=== PATIENT | male | born 1980 | race African-American/Black ===

== ENCOUNTER 2017-09-24 14:17 | Emergency (ER) | payer SELFPAY ==
[~2017-09-24] VITALS: Ht 180.3 cm; Wt 88.5 kg
[2017-09-24] MEDS ORDERED: Lidocaine 1% MPF 10mg/ml 5ml INJ ONE (15:00)
[2017-09-24] MEDS ORDERED: Azithromycin 250mg tab ORAL ONE (15:00)
--- NOTE | 2017-09-24 15:22 | Emergency Room Report ---
History of Present Illness General Chief Complaint: Male Urogenital Problems Source: Patient Present Illness HPI 37-year-old male presents to the emergency department complaining of progressive penile itching, dysuria x3 days. Patient reports that his significant other is receiving treatment here in the ER and has been having episodes of discharge recently unresponsive to treatment. He denies testicular pain or swelling he denies penile discharge, swollen tender lymph nodes, rashes/ lesions or joint pain. Denies abdominal pain. He states that he has noted some increased urinary frequency. Denies hematuria. Denies low back pain. Denies CP, Palpitations, LOC, AMS, dizziness, Changes in Vision, Sensation, paresthesias, or a sudden severe headache. Allergies: Coded Allergies: No Known Allergies (Unverified , 09/24/17) Patient History Past Medical History: see triage record Past Surgical History: none Pertinent Family History: none Immunizations: UTD Reviewed Nursing Documentation: PMH: Agreed, PSxH: Agreed Nursing Documentation-PMH Past Medical History: No Stated History Review of Systems All Other Systems: negative except mentioned in HPI Physical Exam Vital Signs Date Time Temp Pulse Resp B/P (MAP) Pulse Ox O2 Delivery O2 Flow Rate FiO2 09/24/17 14:25 98.3 63 18 131/81 96 Room Air 98.2 Sp02 EP Interpretation: reviewed, normal General Appearance: no apparent distress, alert, GCS 15, non-toxic Head: normocephalic, atraumatic ENT: hearing grossly normal, normal voice Neck: full range of motion Respiratory: lungs clear, normal breath sounds, speaking full sentences Cardiovascular #1: regular rate, rhythm Gastrointestinal: non tender, soft Rectal: deferred Genitourinary: normal inspection, no CVA tenderness, penis normal, scrotum normal, other - normal cremasteric reflex, negative phren's sign, no obvious penile d/c, no lesions, LAD, blisters or vesicles noted. Musculoskeletal: back normal, gait/station normal, normal range of motion, non- tender Neurologic: alert, oriented x3, responsive, motor strength/tone normal, sensory intact, speech normal, grossly normal Psychiatric: judgement/insight normal Skin: normal color, no rash, warm/dry, well hydrated, other - mild erythema to the dorsal glans- scant/faint, no blisters, vesicles or obvious d/c. Lymphatic: no adenopathy Medical Decision Making PA Attestation Dr. smith is my supervising Physician whom patient management has been discussed with. Diagnostic Impression: Primary Impression: Urethritis ER Course 37-year-old male presents to the emergency department complaining of progressive penile itching, dysuria x3 days. Patient reports that his significant other is receiving treatment here in the ER and has been having episodes of discharge recently unresponsive to treatment. He denies testicular pain or swelling he denies penile discharge, swollen tender lymph nodes, rashes/ lesions or joint pain. Denies abdominal pain. He states that he has noted some increased urinary frequency. Denies hematuria. Denies low back pain. Denies CP, Palpitations, LOC, AMS, dizziness, Changes in Vision, Sensation, paresthesias, or a sudden severe headache. Ddx considered but are not limited to UTi , Urethritis, LGV, STI, Stone, Cystitis, prostatitis Threading Machine Tender for PE was: Jigna Vital signs: are WNL, pt. is afebrile H&PE are most consistent with Urethritis, normal cremasteric reflex, negative phren's sign, no obvious penile d/c, no lesions, LAD, blisters or vesicles noted. ORDERS: - UA :unremarkable ED INTERVENTIONS: -250mg Rocephin IM -Azithromycin 1 gram PO DISCHARGE: At this time pt. is stable for d/c to home. Will provide printed patient care instructions, and any necessary prescriptions. Care plan and follow up instructions have been discussed with the patient prior to discharge. Labs Test 09/24/17 14:27 Urine Color Pale yellow Urine Appearance Clear Urine pH 6 (4.5-8.0) Urine Specific [place] 1.010 (1.005-1.035) Urine Protein Negative (NEGATIVE) Urine Glucose (UA) Negative (NEGATIVE) Urine Ketones Negative (NEGATIVE) Urine Occult Blood Negative (NEGATIVE) Urine Nitrite Negative (NEGATIVE) Urine Bilirubin Negative (NEGATIVE) Urine Urobilinogen Normal MG/DL (0.0-1.0) Urine Leukocyte Esterase Negative (NEGATIVE) Last Vital Signs Date Time Temp Pulse Resp B/P (MAP) Pulse Ox O2 Delivery O2 Flow Rate FiO2 09/24/17 14:25 98.3 63 18 131/81 96 Room Air 98.2 Disposition: HOME, SELF-CARE Condition: Stable Scripts Clotrimazole* (LOTRIMIN*) 15 Gm Cream..g. 1 APPLIC TOPIC TWICE A DAY, #15 GM Prov: Patricia Steve 09/24/17 Patient Instructions: Urethritis, Adult Additional Instructions: Take medications as directed. Follow up with a Primary Care Provider in 3-5 days, even if your symptoms have resolved. --Please review list of primary care clinics, if you do not already have a primary care provider Return sooner to ED if new symptoms occur, or current symptoms become worse. - Please note that this Emergency Department Report was dictated using [employer] software, occasionally this can lead to erroneous entry secondary to interpretation by the dictation equipment. Patricia Steve Sep 24, 2017 15:22
[2017-09-24] MEDS ORDERED: CLOTRIMAZOLE15 GM TOPIC (15:23)
[2017-09-24 15:35] VITALS: BP 135/84
[2017-09-24 15:37] VITALS: BP 135/84
[2017-09-24 15:37] LABS: APPEARANCE,URINE CLEAR; BILIRUBIN, URINE NEGATIVE (NEGATIVE); COLOR,URINE PALE YELLOW; GLUCOSE, URINE (UA) NEGATIVE (NEGATIVE); KETONES,URINE NEGATIVE (NEGATIVE); LEUKOCYTE ESTERASE ,URINE NEGATIVE (NEGATIVE); NITRITE,URINE NEGATIVE (NEGATIVE); PH,URINE 6 (4.5-8.0); PROTEIN,URINE NEGATIVE (NEGATIVE); UROBILINOGEN,URINE NORMAL MG/DL (0.0-1.0)
== END 2017-09-24 15:50 | disposition home or self-care (01) ==
LOC: EMR 15:38
DX: N34.2 Other urethritis (principal)
CPT/HCPCS: 81003; 96372; 99283; J0696